=== PATIENT | male | born 2000 | race African-American/Black ===

== ENCOUNTER 2023-11-16 20:00 | Emergency (ER) | payer SELFPAY ==
[~2023-11-16] VITALS: Ht 180.3 cm; Wt 95.0 kg
[2023-11-16 20:16] VITALS: BP 132/84; PULSE 118; RESP 14; TEMP 100.4; O2SAT 98
== END 2023-11-17 03:03 | disposition left against medical advice (07) ==
LOC: ER 20:00
DX: R42 Dizziness and giddiness (principal); Z53.21 Procedure and treatment not carried out due to patient leaving prior to being seen by health care provider
CPT/HCPCS: 99281

== ENCOUNTER 2024-02-03 07:52 | Emergency (ER) | payer SELFPAY ==
[~2024-02-03] VITALS: Ht 177.8 cm; Wt 100.0 kg
[2024-02-03 08:10] VITALS: O2SAT 100
[2024-02-03 08:29] LABS: CLARITY URINE CLEAR (CLEAR); COLOR URINE YELLOW (YELLOW); GLUCOSE URINE NEGATIVE (NEGATIVE); KETONES URINE NEGATIVE (NEGATIVE); LEUKOCYTE ESTERASE URINE NEGATIVE (NEGATIVE); NITRITE URINE NEGATIVE (NEGATIVE); OCCULT BLOOD URINE NEGATIVE (NEGATIVE); PROTEIN URINE NEGATIVE (NEGATIVE); SPECIFIC GRAVITY URINE 1.014 (1.005-1.030)
[2024-02-03 08:30] LABS: BASOPHILS % 1.5 % (0.0-2.0); EOSINOPHILS % 4.2 % (0.0-5.0); HEMATOCRIT. 44.7 % (42.0-52.0); HEMOGLOBIN. 15.3 g/dL (14.0-18.0); LYMPHOCYTES % 52.7 % (20.0-50.0); MEAN CORPUSCULAR HEMOGLOBIN 28.7 pg (28.0-32.0); MEAN CORPUSCULAR HGB CONC 34.1 g/dL (31.0-37.0); MEAN CORPUSCULAR VOLUME 84.1 fL (80.0-94.0); MEAN PLATELET VOLUME 7.1 fl (7.4-10.4); MONOCYTES % 7.8 % (2.0-8.0); NEUTROPHILS % 33.8 % (40.0-76.0); PLATELET 243 x1000/uL (130-400); RED BLOOD CELL COUNT 5.31 mill/uL (4.7-6.1); RED CELL DISTRIBUTION WIDTH 14.8 % (11.6-14.6); WHITE BLOOD COUNT 6.1 x1000/uL (4.5-11.0)
[2024-02-03 08:43] LABS: CALCIUM 9.2 mg/dL (8.7-10.4); CARBON DIOXIDE 24 mEq/L (21-32); CHLORIDE 107 mEq/L (98-107); GLUCOSE 87 mg/dL (70-105); SODIUM 137 mEq/L (136-145); UREA NITROGEN BLOOD 15 mg/dL (9-23)
[2024-02-03] MEDS ORDERED: LIDO700A15 TP (09:34)
[2024-02-03 09:53] VITALS: BP 115/86; PULSE 65; RESP 18; TEMP 98.6
== END 2024-02-03 10:06 | disposition home or self-care (01) ==
LOC: ER 07:59
DX: R10.9 Unspecified abdominal pain (principal); R09.81 Nasal congestion; M54.9 Dorsalgia, unspecified; R56.9 Unspecified convulsions
CPT/HCPCS: 36415; 80048; 81003; 85025; 99283

== ENCOUNTER 2024-04-17 14:29 | Emergency (ER) | payer SELFPAY ==
[~2024-04-17 14:29] MED LIST: LIDO700A15 TP
[2024-04-17 14:30] VITALS: PULSE 82; RESP 18
== END 2024-04-17 16:54 | disposition left against medical advice (07) ==
LOC: ER 14:29
DX: K08.89 Other specified disorders of teeth and supporting structures (principal); Z53.21 Procedure and treatment not carried out due to patient leaving prior to being seen by health care provider